=== PATIENT | female | born 1950 | race Caucasian/White ===

== ENCOUNTER 2016-10-23 04:52 | Emergency (ER) | payer MEDICARE, BC ==
--- NOTE | 2016-10-23 05:43 | ERNOTE ---
Medical Problem HPI - Narrative Date of Service: 10/23/16 - General Chief Complaint: General Assessment Source: patient Exam Limitations: no limitations - Immun/Allergies/Home Medications Immunizations: IMMUNIZATION HX Immunizations Up to Date Yes History of Influenza Vaccine Yes Hx Pneumococcal Vaccination Yes Allergies/Adverse Reactions: Allergies morphine Allergy (Verified 10/23/16 05:04) Home Medications: HOME MEDICATIONS Atenolol [Tenormin] 50 mg PO DAILY 10/23/16 [Last Taken 10/23/16 02:45 50 mg] Citalopram Hydrobromide [Citalopram HBr] 20 mg PO DAILY 10/23/16 [Last Taken Unknown] Digoxin [Lanoxin] 0.25 mg PO DAILY 10/23/16 [Last Taken 10/23/16 04:30] Losartan Potassium [Cozaar] 50 mg PO DAILY PRN 10/23/16 [Last Taken 10/23/16 00: 00 50 mg] Pramipexole Di-HCl [Mirapex] 0.125 mg PO HS 10/23/16 [Last Taken Unknown] - History of Present History Date (Duration): 10/23/16 Time (Timing): 05:36 Timing: intermittent Severity: mild Modifying Factors - (Improves): Present: medication - patient 65-year-old reports recent diarrheal illness. States this resolved several days ago she's had sensation of salt like taste in her mouth. Patient states this occurs despite her pushing fluids thinks might be dehydrated. He awoke last evening with generalized headache. She had blood pressure reading with a systolic around 180. Patient took approximately 50 mg of losartan. Apparently she cut 100 mg tab and have and then also removed a piece of the above with total dose somewhere between 40 and 50 mg per patient. Early this morning after checking her blood pressure multiple times she decided to take her atenolol 50 mg tablet early. She took place around 3 AM. Patient no longer with headache with blood pressure in the improving with observation. Last blood pressure 136/84. Patient appears somewhat anxious. She has no vision changes, no headaches, no gait changes no chest pain radiating neck or arm or back pain associated with the blood pressure readings. She states her blood pressure seems to have been creeping upward over at least the last few weeks. After telling me the above he states her morning blood pressure systolic blood pressure average is less than 120. It sounds like the majority of the elevated blood pressures that she refers to have been in the evenings. Patient does not have any end organ symptoms associated with the above. Patient takes blood pressure readings multiple times during the day. Has not discussed current problems with blood pressure with her primary care provider to date. Review of Systems - Review of Systems Constitutional: Present: no symptoms reported EYE: Present: no symptoms reported ENT: Present: no symptoms reported Respiratory: Present: no symptoms reported Cardiology: Present: no symptoms reported Gastrointestinal/Abdominal: Present: no symptoms reported, other - recent diarrhea which is since resolved. Genitourinary: Present: no symptoms reported Musculoskeletal: Present: no symptoms reported Skin: Present: no symptoms reported Neurological: Present: headache - patient with headache last evening which has since resolved Endocrine: Present: no symptoms reported Hematologic/Lymphatic: Present: no symptoms reported Psych: Present: no symptoms reported - Patient's Past Medical History Patient History - Medical: Depression, Fibromyalgia Patient History - Cardiac/Respiratory: Hypertension Patient History - Cancer: Breast Patient History - Surgical Procedures: Back Surgery, Colonoscopy, Other Patient History - Other: None - Social History Living Situations: home Psych History: Hx of Anxiety, Hx of Depression Smoking Status: Former smoker Alcohol Use: none Drug Use: none - Immunizations Immunizations Up to Date: Yes Hx Pneumococcal Vaccination: Yes History of Influenza Vaccine: Yes Physical Exam - Physical Exam General Appearance: Present: wd/wn, alert, no apparent distress Eye Exam: Normal inspection: bilateral, PERRL: bilateral, EOMI: bilateral Ears, Nose, Throat: Present: normal ENT inspection, hearing grossly normal, normal pharynx Neck: Present: normal inspection, nontender Respiratory: Present: no respiratory distress, normal breath sounds, no accessory muscle use, chest nontender, lungs clear Cardiovascular/Chest: Present: regular rate, rhythm, no murmur, normal peripheral pulses Gastrointestinal/Abdominal: Present: normal bowel sounds, nontender, nondistended, soft, no organomegaly Extremity Exam: Present: normal inspection, non-tender, no edema, normal range of motion Neurological Exam: Present: alert, oriented, normal mood/affect, no motor/ sensory deficits Skin Exam: Present: normal color, warm/dry Lymphatic Exam: Present: no adenopathy ED Progress - Date and Time Seen: Date and Time: 10/23/16 06:23 Laboratory Results - last 24 hr 10/23/16 10/23/16 05:45 05:45 WBC 3.7 L RBC 3.88 L Hgb 11.5 L Hct 33.3 L MCV 85.8 MCH 29.6 MCHC 34.5 RDW 12.4 Plt Count 202 MPV 8.7 Immature Gran % (Auto) 0.30 Immature Gran # (Auto) 0.01 Neutrophils % 70.3 Lymphocytes % 20.2 Monocytes % 8.1 Eosinophils % 0.8 Basophils % 0.3 Nucleated RBC % 0.0 Neutrophils # 2.6 Lymphocytes # 0.8 L Monocytes # 0.3 Eosinophils # 0.0 Absolute Basophils 0.0 Sodium 127 L Plasma Sodium 127 L Potassium 4.5 Chloride 92 L Carbon Dioxide 26.6 Anion Gap 12.9 BUN 12 Creatinine 0.64 Est GFR (Non-Af Amer) 99 BUN/Creatinine Ratio 18.8 Random Glucose 100 Calcium 9.3 Calcium Adj for Albumin 9.5 Total Bilirubin 0.4 AST 38 ALT 43 Alkaline Phosphatase 47 L Total Protein 7.1 Albumin 3.4 Patient most recent labs (prior to today) 07/07/15 with NA at that time 131. Patient remains asymptomatic. - Results and Orders Patient's Lab Results:: I have reviewed the patient's lab results. - Vital Signs Patient's Vital Signs:: I have reviewed the patient's vital signs. Vital Signs: Vital Signs 10/23/16 04:56 Temperature 36.0 C L Pulse Rate 58 L Respiratory 18 Rate Blood Pressure 173/91 O2 Sat by Pulse 98 Oximetry - Progress/Reassessment Chief Complaint: General Assessment Departure - Departure Clinical Impression: Hypertension Disposition: Home self-care Condition: Good Instructions: Hypertension, [id number] Additional Instructions: Recommend check blood pressure twice daily. If the pressure systolic greater than 1 50 units May take an additional 50 mg of losartan. Majority of your blood pressure readings appear to be within normal levels this would not change your overall. Daily regimen at this point. Referrals: ROME KIMBALL [Primary Care Provider] -
[2016-10-23 05:51] LABS: Hematocrit 33.3 % (37.0-47.0); Hemoglobin 11.5 gm/dL (12.5-16.0); Mean Cell Volume 85.8 fl (78-100); Mean Corpuscular Hemoglobin 29.6 pg (27-31); Mean Corpuscular Hgb Conc 34.5 g/dl (32-36); Mean Platelet Volume 8.7 fl (6.0-9.5); Neutrophil # 2.6 K/mm3 (1.3-6.0); Neutrophil % 70.3 % (42-75.0); Platelet Count 202 K/mm3 (150-450); Red Blood Count 3.88 M/mm3 (4.2-5.4); Red Cell Distribution Width 12.4 % (11.5-14.0); White Blood Count 3.7 K/mm3 (4.0-10.5)
[2016-10-23 06:05] LABS: Albumin * 3.4 gm/dl (3.4-5.0); Anion Gap 12.9 mmol/L (6.8-13.8); BUN/Creatinine Ratio 18.8 (9.0-21.6); Bilirubin, Total 0.4 mg/dL (0.0-1.1); Ca. Corrected For Albumin 9.5 mg/dL (8.4-10.2); Calcium * 9.3 mg/dL (7.9-10.9); Carbon Dioxide 26.6 mmol/L (24-32.6); Potassium 4.5 mmol/L (3.4-4.6); Total Protein 7.1 gm/dL (6.2-8.2)
[2016-10-23 06:32] VITALS: BP 118/82
--- OUTSIDE RECORDS SUMMARY | 2016-10-23 06:39 | XMS REPORT | Continuity of Care Document ---
:1950 Author Organization [facility] ([facility]) Address [place] [address] Phone [phone] Care Team Providers Name Role Phone Provider, No-Primary Care Primary Care Provider Unavailable Source Comments This disclosure is being made pursuant to the Care Everywhere program, applicable federal and state laws, and may not contain all informaitonavailable regarding this patient.[facility] ([facility]) Active Allergies and Adverse Reactions Allergen Noted Date Severity Reactions Comments Morphine Asthma Current Medications Not on file Active Problems Problem Noted Date Sleepiness 01/10/2009 Insomnia 01/10/2009 Insomnia, unspecified 09/23/2008 Unspecified persistent mental disorders due to conditions classified 2008 elsewhere Most Recent Encounters Date Type Specialty Providers Description 09/20/2016 Hospital Encounter Radiation Oncology Fermín Young, Comp: Patient MD Reported Reason For Visit 08/16/2016 Hospital Encounter Radiation Oncology Fermín Young Chief Comp: Patient MD Reported Reason For Visit 08/15/2016 Hospital Encounter Radiation Oncology Fermín Young Chief Comp: Patient MD Reported Reason For Visit 08/12/2016 Hospital Encounter Radiation Oncology Fermín Young Chief Comp: Patient MD Reported Reason For Visit 08/11/2016 Hospital Encounter Radiation Oncology Fermín Young, Comp: Patient MD Reported Reason For Visit 08/10/2016 Hospital Encounter Radiation Oncology Fermín Young Chief Comp: Patient MD Reported Reason For Visit 08/09/2016 Hospital Encounter Radiation Oncology Fermín Young Chief Comp: Patient MD Reported Reason For Visit 08/08/2016 Hospital Encounter Radiation Oncology Fermín Young Chief Comp: Patient MD Reported Reason For Visit 08/03/2016 Hospital Encounter Radiation Oncology Fermín Young Chief Comp: Patient MD Reported Reason For Visit 08/02/2016 Hospital Encounter Radiation Oncology Fermín Young Chief Comp: Patient MD Reported Reason For Visit 08/01/2016 Hospital Encounter Radiation Oncology Hector, Fermín M, Chief Comp: Patient MD Reported Reason For Visit 07/29/2016 Hospital Encounter Radiation Oncology Fermín Young, Chief Comp: Patient MD Reported Reason For Visit 07/28/2016 Hospital Encounter Radiation Oncology Fermín Young, Chief Comp: Patient MD Reported Reason For Visit 07/27/2016 Hospital Encounter Radiation Oncology Fermín Young, Chief Comp: Patient MD Reported Reason For Visit 07/26/2016 Hospital Encounter Radiation Oncology Fermín Young, Chief Comp: Patient MD Reported Reason For Visit 07/25/2016 Hospital Encounter Radiation Oncology Fermín Young, Chief Comp: Patient MD Reported Reason For Visit Social History Tobacco Use Types Packs/Day Years Used Date Never Assessed Last Filed Vital Signs Vital Sign Reading Time Taken Blood Pressure 139/93 09/23/2008 2:38 PM [employer] Pulse 89 09/23/2008 2:38 PM [employer] Temperature - - Respiratory Rate - - Height - - Weight 64.198 kg (141 lb 8.5 oz) 09/23/2008 2:38 PM [employer] Body Mass Index - - Oxygen Saturation - - Plan of Care Health Maintenance Due Date Last Done Comments HCV Screening 1950 Hepatitis B Vaccine (1 of 3 - Primary Series) 1950 Tdap Vaccine 1961 Lipid Disorder Screening 1968 Td Vaccine 1968 Cervical Cancer Screening 1980 Mammogram 1990 Colonoscopy 12/22/2000 Zoster Vaccine 2010 Osteoporosis Screening (DXA Bone Density) 12/24/2015 Pneumococcal Vaccine (1 of 2 - PCV13) 12/24/2015 Influenza Vaccine: Seasonal (#1) 04/11/2016 Results from Last 3 Months Not on file
== END 2016-10-23 06:35 | disposition home or self-care (01) ==
LOC: ER 04:52
DX: I10 Essential (primary) hypertension (principal); Z87.891 Personal history of nicotine dependence; Z85.3 Personal history of malignant neoplasm of breast; F32.9 Major depressive disorder, single episode, unspecified